=== PATIENT | female | born 1935 | race Caucasian/White ===

== ENCOUNTER 2016-12-24 14:30 | Emergency (ER) | payer OTHER, MEDICARE ==
[~2016-12-24] VITALS: Ht 152.4 cm; Wt 52.2 kg
--- NOTE | 2016-12-24 16:34 | ED GENERAL ADULT ---
History of Present Illness General Chief Complaint: General Adult Stated Complaint: NO RELIEF OF PNA Source: patient Exam Limitations: no limitations Allergies Coded Allergies: No Known Allergies (12/24/16) Triage Note: PT STATES SHE HAS PNA AND IS CURRENTLY ON DOXYCYCLINE 100MG BID AND STATES SHE IS NOT FEELING ANY BETTER. Triage Nurses Notes Reviewed? yes HPI: 81-year-old woman seen for evaluation of persistent cough and abdominal discomfort. She was reportedly diagnosed with a pneumonia last week by her primary care provider for which she was prescribed doxycycline. She reports that she has not had any improvement of her cough or mild shortness of breath. She admits that she had some right upper quadrant discomfort last week that has subsequently resolved. She admits to having normal nonbloody brown formed bowel movements. Otherwise she denies any headache, fever, chills, chest pain, palpitations, nausea, vomiting, diarrhea, numbness/tingling, urinary frequency/urgency/pain/ discharge, constipation. (BECKY BROWNE MD) Vital Signs & Intake/Output Vital Signs & Intake/Output Vital Signs Date Time Temp Pulse Resp B/P Pulse O2 O2 Flow FiO2 Ox Delivery Rate 12/24 1814 97.4 104 15 146/63 99 Room Air Room Air 12/24 1750 96 12/24 1709 Room Air Room Air 12/24 1700 97.2 88 18 127/63 100 12/24 1436 97.7 105 16 124/77 96 Room Air Reconcile Medications Prednisone 20 MG TABLET 1 TAB PO BID BRONCHITIS (KOLE [place]) Past History Travel History Traveled to [place] past 21 day No Medical History Any Pertinent Medical History? see below for history Cardiovascular: ABLASION 1998 Psychiatric: anxiety, depression Surgical History Surgical History: non-contributory Psychosocial History What is your primary language Armenian Tobacco Use: Quit >30 days ago ETOH Use: occasional use Illicit Drug Use: denies illicit drug use Family History Hx Contributory? No (BECKY BROWNE MD) Review of Systems Review of Systems Constitutional: Reports: see HPI. (BECKY BROWNE MD) Review of Systems EENTM: Reports: no symptoms. Respiratory: Reports: see HPI, cough. Cardiovascular: Reports: no symptoms. GI: Reports: no symptoms. Genitourinary: Reports: no symptoms. Musculoskeletal: Reports: no symptoms. Skin: Reports: no symptoms. Neurological/Psychological: Reports: no symptoms. Hematologic/Endocrine: Reports: no symptoms. Immunologic/Allergic: Reports: no symptoms. All Other Systems: Reviewed and Negative (KOLE MESA,[place]) Physical Exam Physical Exam General Appearance: well developed/nourished, no apparent distress, alert, awake Comments: General -well-developed, well-nourished thin elderly woman in no acute distress HEENT - NCAT, PERRL, EOMI, anicteric sclera Cardio - S1, S2 w/o murmurs/gallops/rubs Resp -mild rhonchi heard in left lung delgado without any wheezing or crackles GI - soft, nontender, nondistended, bowel sounds present Neuro - Awake and alert, CN II - XII grossly intact Extremities - no edema, pulses intact Core Measures ACS in differential dx? No CVA/TIA Diagnosis: No Severe Sepsis Present: No Septic Shock Present: No (PAVAN MESA,BECKY) Progress Differential Diagnoses I considered the following diagnoses in my evaluation of the patient: Pneumonia, colitis Plan of Care: Orders Procedure Date/time Status Regular Diet 12/24 D Active TRC EVALUATION (GEN) 12/24 1650 Active COMPREHENSIVE METABOLIC PANEL 12/24 1650 Complete CBC WITHOUT DIFFERENTIAL 12/24 1650 Complete Laboratory Tests 12/24/16 1705: Anion Gap 12, Estimated GFR > 60, BUN/Creatinine Ratio 17.1, Glucose 101 H, Calcium 9.5, Total Bilirubin 0.5, AST 26, ALT 34, Alkaline Phosphatase 92, Total Protein 7.5, Albumin 4.4, Globulin 3.1, Albumin/Globulin Ratio 1.4, CBC w Diff NO MAN DIFF REQ, RBC 4.26, MCV 92.6, MCH 30.9, RDW 13.5, MPV 8.6, Gran % 60.3, Lymphocytes % 31.3, Monocytes % 6.7, Eosinophils % 1.1, Basophils % 0.6, Absolute Granulocytes 5.6, Absolute Lymphocytes 2.9, Absolute Monocytes 0.6, Absolute Eosinophils 0.1, Absolute Basophils 0.1, PUBS MCHC 33.3 Initial ED EKG: none Comments: Complete blood count did not demonstrate any leukocytosis. Compensative metabolic panel did not demonstrate any metabolic aberrancy. PA and lateral chest radiograph demonstrated a retrocardiac opacity which is possibly community engagement representative of atelectasis, but could represent a pneumonia. Given that the patient is afebrile with persistent shortness of breath and nonproductive cough it is possible that patient has not failed outpatient therapy and needs to complete her course of antibiotics. Patient was given an intravenous dose of Solu-Medrol and will be discharged home with a steroid taper and instruction to follow-up with her primary care provider and massage operator after discharge. (BCEKY BROWNE MD) Departure Departure Disposition: HOME OR SELF CARE Condition: Stable Clinical Impression Primary Impression: Bronchitis Referrals: ERIC MESA,LARS Buck (PCP/Family) Additional Instructions: Take steroid taper as directed. Continue to take the doxycycline you were previously prescribed as directed. Follow-up with your primary care provider and massage operator after discharge for further evaluation of your previously diagnosed pneumonia and possible bronchitis. Call 911 or return to the ED should your symptoms worsen or she develop worsening signs of shortness of breath. Departure Forms: Customer Survey General Discharge Information Prescriptions: Current Visit Scripts Prednisone 1 TAB PO BID #10 TAB (BECKY BROWNE MD) Resident Co-Sign Statement Statement: ED Attending supervision documentation- x I saw and evaluated the patient. I have also reviewed all the pertinent lab results and diagnostic results. I agree with the findings and the plan of care as documented in the Resident's documentation. [] I have reviewed the ED Record and agree with the Resident's documentation. [] Additions or exceptions (if any) to the Resident's note and plan are summarized below: [] ([place] SHARIF MD) Critical Care Note Critical Care Note Critical Care Time: non-applicable (BECKY BROWNE MD)
[2016-12-24 17:15] LABS: ABSOLUTE BASOPHIL COUNT 0.1 /CUMM (0.0-0.2); ABSOLUTE EOSINOPHIL COUNT 0.1 /CUMM (0.0-0.7); ABSOLUTE GRANULOCYTE CT 5.6 /CUMM (1.4-6.5); ABSOLUTE LYMPH COUNT 2.9 /CUMM (1.2-3.4); ABSOLUTE MONOCYTE COUNT 0.6 /CUMM (0.10-0.60); BASOPHIL % 0.6 % (0.0-2.0); EOSINOPHIL % 1.1 % (0-5); GRANULOCYTE % 60.3 % (42.2-75.2); HEMATOCRIT 39.4 % (37-47); MEAN CORPUSCULAR HGB 30.9 PG (27.0-31.0); MEAN CORPUSCULAR HGB CONC 33.3 G/DL (33.0-37.0); MEAN CORPUSCULAR VOLUME 92.6 FL (81.0-99.0); MEAN PLATELET VOLUME 8.6 FL (7.4-10.4); PLATELET COUNT 271 /CUMM (130-400); RBC DISTRIBUTION WIDTH 13.5 % (11.5-14.5); RED BLOOD CELL CT 4.26 /CUMM (4.20-5.40); WHITE BLOOD CELL COUNT 9.4 /CUMM (4.8-10.8)
--- NOTE | 2016-12-24 17:37 | RADIOLOGY REPORT ---
XR CHEST CLINICAL INFORMATION: Shortness of breath and cough with left lung pneumonia on previous chest x-ray. COMPARISON: None TECHNIQUE: PA and lateral views of the chest are obtained. FINDINGS: Low lung volumes. Mild retrocardiac opacity that may reflect atelectasis versus developing pneumonia. Lungs are otherwise clear. No pleural effusion or pneumothorax. The cardiac silhouette size is normal. There are no acute osseous findings. IMPRESSION: Mild retrocardiac opacity may reflect atelectasis versus pneumonia. No prior studies available for comparison.
[2016-12-24] MEDS ORDERED: PREDNISONE20 M1 PO (18:00)
[2016-12-24 18:14] VITALS: BP 146/63
== END 2016-12-24 18:17 ==
LOC: ERH 14:30
PROVIDERS: Internal Medicine Interventional Cardiology
DX: J40 Bronchitis, not specified as acute or chronic (principal); Z87.891 Personal history of nicotine dependence
CPT/HCPCS: 1263; 96374; J2930